=== PATIENT | female | born 1980 | race Hispanic/Latino ===

== ENCOUNTER 2020-02-02 10:00 | Emergency (ER) | payer OTHER ==
[~2020-02-02] VITALS: Ht 160 cm; Wt 116.8 kg
[2020-02-02 10:01] VITALS: BP 131/81
[2020-02-02] MEDS ORDERED: DOXY100C37 PO (10:42)
[2020-02-02] MEDS ORDERED: DOXYCYCLINE HYCLATE 100MG TABLET PO ONE (10:45)
== END 2020-02-02 11:07 | disposition home or self-care (01) ==
LOC: M ED 10:00
DX: J01.90 Acute sinusitis, unspecified (principal); H92.09 Otalgia, unspecified ear; R09.89 Other specified symptoms and signs involving the circulatory and respiratory systems; Z88.0 Allergy status to penicillin; F17.200 Nicotine dependence, unspecified, uncomplicated
CPT/HCPCS: 87486; 87581; 87633; 87798; 99282; U0002

== ENCOUNTER 2021-06-15 16:33 | Emergency (ER) | payer OTHER ==
[~2021-06-15] VITALS: Ht 160 cm; Wt 100.0 kg
[~2021-06-15 16:33] MED LIST: DOXY1CAP62 PO
[2021-06-15 17:00] VITALS: BP 122/69
[2021-06-15 17:58] LABS: BASO % 0.4 % (0.0-1.0); EOS # 0.1 10^3/uL (0.0-0.5); EOS % 1.5 % (0.0-3.0); HEMATOCRIT 40.3 % (36.0-47.0); HEMOGLOBIN 13.6 g/dl (12.0-15.5); LYMPH # 3.5 10^3/uL (1.5-5.0); LYMPH % 44.7 % (24.0-44.0); MEAN CORPUSCULAR HEMOGLOBIN 30.2 pg (27.0-33.0); MEAN CORPUSCULAR HGB CONC 33.7 g/dl (32.0-36.5); MEAN CORPUSCULAR VOLUME 89.6 fl (80.0-96.0); MONO # 0.5 10^3/uL (0.0-0.8); NEUTROPHILS # 3.7 10^3/uL (1.5-8.5); PLATELET COUNT, AUTOMATED 266 10^3/uL (150-450); WHITE BLOOD COUNT 7.9 10^3/uL (4.0-10.0)
--- NOTE | 2021-06-15 17:59 | REP ---
INDICATION: CHEST PAIN. COMPARISON: None. TECHNIQUE: Single portable AP view of the chest was performed. FINDINGS: There is no acute infiltrate or pulmonary edema. Lungs are clear. The heart is not significantly enlarged. The mediastinal silhouette is unremarkable. The visualized osseous structures are intact. IMPRESSION: No acute pulmonary disease. <Electronically signed by Rory Dc > 06/15/21 0007
[2021-06-15 18:24] LABS: BLOOD UREA NITROGEN 15 MG/DL (7-18); CALCIUM LEVEL 9.1 MG/DL (8.5-10.1); CARBON DIOXIDE LEVEL 27 MEQ/L (21-32); CHLORIDE LEVEL 107 MEQ/L (98-107); CREATININE FOR GFR 0.57 MG/DL (0.55-1.30); GLOMERULAR FILTRATION RATE > 60.0 (>58); GLUCOSE, FASTING 85 MG/DL (70-100); POTASSIUM SERUM 3.8 MEQ/L (3.5-5.1); SODIUM LEVEL 139 MEQ/L (136-145)
--- NOTE | 2021-06-16 15:49 | ECGEPIP ---
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
== END 2021-06-15 18:47 | disposition left against medical advice (07) ==
LOC: M ED 16:33 → EDBD 16:33 → M ED 18:47
DX: R07.9 Chest pain, unspecified (principal); Z53.9 Procedure and treatment not carried out, unspecified reason; F41.0 Panic disorder [episodic paroxysmal anxiety]; F17.200 Nicotine dependence, unspecified, uncomplicated; Z88.0 Allergy status to penicillin; Z91.041 Radiographic dye allergy status

== ENCOUNTER 2021-06-17 16:43 | Emergency (ER) | payer OTHER ==
[~2021-06-17] VITALS: Ht 160 cm; Wt 100.5 kg
[2021-06-17] MEDS ORDERED: ALBU83IN INH (16:59)
[2021-06-17] MEDS ORDERED: VENL75CA47 PO (16:59)
[2021-06-17 18:19] LABS: HEMATOCRIT 40.1 % (36.0-47.0); HEMOGLOBIN 13.6 g/dl (12.0-15.5); MEAN CORPUSCULAR HEMOGLOBIN 30.4 pg (27.0-33.0); MEAN CORPUSCULAR HGB CONC 33.9 g/dl (32.0-36.5); MEAN CORPUSCULAR VOLUME 89.5 fl (80.0-96.0); PLATELET COUNT, AUTOMATED 278 10^3/uL (150-450); RED BLOOD COUNT 4.48 10^6/uL (4.00-5.40); WHITE BLOOD COUNT 9.8 10^3/uL (4.0-10.0)
[2021-06-17 18:48] LABS: ATYPICAL LYMPH 9 % (0-5); EOSINOPHILS 2 % (0-3); LYMPHOCYTES 28 % (16-44); MONOCYTES 3 % (0-5); NEUTROPHILS 58 % (28-66)
[2021-06-17 18:49] LABS: PLATELET ESTIMATE NORMAL (NORMAL)
[2021-06-17 18:54] LABS: ALBUMIN 3.1 GM/DL (3.2-5.2); ALT/SGPT 19 U/L (12-78); BILIRUBIN,DIRECT < 0.1 MG/DL (0.0-0.2); BILIRUBIN,TOTAL 0.4 MG/DL (0.2-1.0); FREE T4 1.11 NG/DL (0.76-1.46); LIPASE 80 U/L (73-393); TOTAL PROTEIN 6.4 GM/DL (6.4-8.2)
--- NOTE | 2021-06-17 19:30 | REP ---
INDICATION: CHEST PAIN. COMPARISON: 06/15/2021. TECHNIQUE: Single portable AP view of the chest was performed. FINDINGS: There is no acute infiltrate or pulmonary edema. Lungs are clear. The heart is not significantly enlarged. The mediastinal silhouette is unremarkable. The visualized osseous structures are intact. IMPRESSION: No acute pulmonary disease. <Electronically signed by Rory Dc > 06/17/21 1927
--- NOTE | 2021-06-17 20:12 | ECGEPIP ---
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
[2021-06-17 21:25] VITALS: BP 125/62
--- NOTE | 2021-06-19 10:47 | ECGEPIP ---
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
== END 2021-06-17 19:24 | disposition home or self-care (01) ==
LOC: EDBD 16:43 → M ED 16:43
DX: R07.89 Other chest pain (principal); Q07.00 Arnold-Chiari syndrome without spina bifida or hydrocephalus; F17.200 Nicotine dependence, unspecified, uncomplicated; Z91.041 Radiographic dye allergy status; Z88.0 Allergy status to penicillin